=== PATIENT | male | born 1995 | race African-American/Black ===

== ENCOUNTER 2017-08-15 12:55 | Observation (INO) | payer MEDICAID, OTHER ==
[2017-08-15] VITALS (11 sets, daily range): BP systolic 128–193; BP diastolic 69–123; PULSE 104–136; RESP 22–26; TEMP 98.4–99.3; O2SAT 95–97
[~2017-08-15 12:55] MED LIST: ALBU0.08 NEB; BACLOF10P ITR; CLAR10CA3 PO; JEVILIQ12; LISI2.5T3 PO; MONT10TA2 PO; OMEP20TA93 PO
[2017-08-15] MEDS ORDERED: SODIUM CHLOR 0.9% 1000 ML INJ 1,000 ML IV SCH (13:25)
[2017-08-15] MEDS ORDERED: RESP: ALBUTEROL 2.5 MG/IPRATROPIUM 0.5 MG NEB (SCH) INH ONE (13:30)
[2017-08-15] MEDS ORDERED: SODIUM CHLORIDE 0.9% FLUSH 10 ML FLUSH IVF PRN (13:30)
--- NOTE | 2017-08-15 13:41 | PD ---
HPI Chief Complaint: Respiratory Symptoms Time Seen by Provider: 13:12 Travel History International Travel<30 days: No Contact w/Intl Traveler<30days: No Traveled to known affect area: No History of Present Illness HPI Patient comes into the emergency department at the advice of his primary care doctor to rule out pneumonia. Per guardian patient went to have a dental procedure done 2 weeks ago and the patient bit down on the glass instrument causing it to break. Guardian reports the dentist felt like they got everything out however was sent to the emergency department to rule out foreign body aspiration. Guardian states patient is been fine until yesterday when he developed a nonproductive cough. Denies any fevers, nausea, vomiting, change in bowel or bladder, shortness of breath, chest pain, headache, or patient complaining of other symptoms. Patient denies any pain anywhere. Guardian reports patient has history of cerebral palsy, hypertension, and tachycardia. Cardiac reports that her son was diagnosed with the flu within the last week and is uncertain if he may have caught that. Guarding reports giving over-the- counter medication for symptomatic relief without improvement of symptoms. Denies anything making symptoms worse. PFSH Past Medical History Hx Anticoagulant Therapy: No Arthritis: No Asthma: Yes Autoimmune Disease: No Blood Disorders: No Anxiety: No Depression: No Heart Rhythm Problems: No Cancer: No Cardiovascular Problems: Yes Cerebral Palsy: Yes High Cholesterol: No Chemotherapy: No Chest Pain: No Congestive Heart Failure: No Cerebrovascular Accident: No Cystic Fibrosis: No Developmental Delay: Yes Diabetes: No Diminished Hearing: No Endocrine: No Genitourinary: No Hiatal Hernia: No Hypertension: Yes (noticed high blood pressure in 07/2010 with previous surgery.) Immune Disorder: No Implanted Vascular Access Dvce: Yes Musculoskeletal: Yes Neurologic: Yes (cerabral palsy) Psychiatric: No Reproductive: No Respiratory: Yes Immunizations Current: Yes Migraines: No Radiation Therapy: No Seizures: No Sickle Cell Disease: No Sleep Apnea: No Ulcer: No PNEUMOCCOCAL Vaccine (Year): 1 Past Surgical History Abdominal Surgery: Yes Body Medical Devices: baclofen pump, peg tube Cardiac Surgery: No Ear Surgery: No Endocrine Surgery: No Eye Surgery: No Genitourinary Surgery: No Gynecologic Surgery: No Neurologic Surgery: No Oral Surgery: No Thoracic Surgery: No Other Surgery: Yes (HAMSTRING RELEASE, baclofen pump, g tube) Social History Alcohol Use: No Tobacco Use: No Substance Use: No Allergies-Medications (Allergen,Severity, Reaction): Coded Allergies: amoxicillin (Unverified Allergy, Severe, Rash, 08/15/17) clavulanic acid (Unverified Allergy, Severe, Rash, 08/15/17) Reported Meds & Prescriptions Reported Meds & Active Scripts Active Singulair (Montelukast Sodium) 10 Mg Tab 10 Mg PO HS Claritin (Loratadine) 10 Mg Cap 10 Mg PO HS Reported Omeprazole 20 Mg Tab 20 Mg PO DAILY Lioresal Intrathecal Inj (Baclofen) 40 Mg/20 Ml Kit 399.7 Mcg ITR CONTINUOUS Use Only with pump labeled for intrathecal administration. Lisinopril 2.5 Mg Tab 3.75 Mg PO DAILY Jevity 1.5 Karson (Nutritional Supplements) 1 Liq Liq Albuterol Neb (Albuterol Sulfate) 2.5 Mg/3 Ml Neb 2.5 Mg NEB Q4HR NEB While awake Review of Systems Except as stated in HPI: all other systems reviewed are Neg Physical Exam Narrative GENERAL: Well-nourished, in no acute distress, and non-ill appearing. SKIN: Focused skin assessment warm and dry. HEAD: Atraumatic. Normocephalic. EYES: Pupils equal and round. EOMI. No scleral icterus. No injection or drainage. ENT: No nasal bleeding or discharge. Mucous membranes pink and moist. Tympanic membrane is pearly pinedo bilaterally. Posterior pharynx not erythematous without exudate. Uvula is midline. No tenderness to facial sinuses to palpation NECK: Trachea midline. Supple. No nuclear rigidity. No cervical lymphadenopathy. CARDIOVASCULAR: Regular rate and rhythm. No murmur appreciated. RESPIRATORY: No accessory muscle use. No respiratory distress. Clear to auscultation. Breath sounds equal bilaterally. MUSCULOSKELETAL: No obvious deformities. No clubbing. No cyanosis. No edema. NEUROLOGICAL: Awake and alert. Normal speech for patient per guardian. Data Data Last Documented VS Vital Signs Date Time Temp Pulse Resp B/P (MAP) Pulse Ox O2 Delivery O2 Flow Rate FiO2 08/15/17 15:36 136 22 141/95 (110) 96 Room Air 08/15/17 12:58 99.3 Orders Orders Basic Metabolic Panel (Bmp) (08/15/17 13:25) Complete Blood Count With Diff (08/15/17 13:25) Lactic Acid Sepsis Protocol (08/15/17 13:25) Influenzae A/B Antigen (08/15/17 13:25) Blood Culture (08/15/17 13:25) Chest, Single Ap (08/15/17 13:25) Ecg Monitoring (08/15/17 13:25) Iv Access Insert/Monitor (08/15/17 13:25) Oximetry (08/15/17 13:25) Sodium Chlor 0.9% 1000 Ml Inj (Ns 1000 M (08/15/17 13:25) Sodium Chloride 0.9% Flush (Ns Flush) (08/15/17 13:30) Albuterol-Ipratropium Neb (Duoneb Neb) (08/15/17 13:30) Sodium Chlor 0.9% 1000 Ml Inj (Ns 1000 M (08/15/17 15:45) Lactic Acid Sepsis Protocol (08/15/17 15:35) Vancomycin Inj (Vancomycin Inj) (08/15/17 16:13) Aztreonam Inj (Azactam Inj) (08/15/17 16:13) Metronidazole 500 Mg Inj (Flagyl 500 Mg (08/15/17 16:13) Sepsis Workup Initiated (08/15/17 ) Prothrombin Time / Inr (Pt) (08/15/17 16:19) Act Partial Throm Time (Ptt) (08/15/17 16:19) Urinalysis - C+S If Indicated (08/15/17 16:19) Vital Signs (Adult) Q4H (08/15/17 16:35) Activity Oob With Assistance (08/15/17 16:35) Diet Regular Basic (08/15/17 Dinner) Sodium Chlor 0.9% 1000 Ml Inj (Ns 1000 M (08/15/17 16:35) Ondansetron Inj (Zofran Inj) (08/15/17 16:45) Basic Metabolic Panel (Bmp) (08/16/17 06:00) Complete Blood Count With Diff (08/16/17 06:00) Acetaminophen (Tylenol) (08/15/17 16:45) Ibuprofen (Motrin) (08/15/17 16:45) Magnesium Hydroxide Liq (Milk Of Magnesi (08/15/17 16:45) Sennosides (Senokot) (08/15/17 16:45) Bisacodyl Supp (Dulcolax Supp) (08/15/17 16:45) Scd&Teds Bilateral/Knee High NOEMY.QSHIFT (08/15/17 16:35) Labs Laboratory Tests Test 08/15/17 14:15 White Blood Count 8.3 TH/MM3 Red Blood Count 5.66 MIL/MM3 Hemoglobin 16.1 GM/DL Hematocrit 48.2 % Mean Corpuscular Volume 85.2 FL Mean Corpuscular Hemoglobin 28.4 PG Mean Corpuscular Hemoglobin Concent 33.4 % Red Cell Distribution Width 13.0 % Platelet Count 259 TH/MM3 Mean Platelet Volume 9.3 FL Neutrophils (%) (Auto) 65.1 % Lymphocytes (%) (Auto) 27.5 % Monocytes (%) (Auto) 6.7 % Eosinophils (%) (Auto) 0.1 % Basophils (%) (Auto) 0.6 % Neutrophils # (Auto) 5.4 TH/MM3 Lymphocytes # (Auto) 2.3 TH/MM3 Monocytes # (Auto) 0.6 TH/MM3 Eosinophils # (Auto) 0.0 TH/MM3 Basophils # (Auto) 0.0 TH/MM3 CBC Comment DIFF FINAL Differential Comment Blood Urea Nitrogen 10 MG/DL Creatinine 0.53 MG/DL Random Glucose 105 MG/DL Calcium Level 9.7 MG/DL Sodium Level 142 MEQ/L Potassium Level 4.2 MEQ/L Chloride Level 107 MEQ/L Carbon Dioxide Level 21.7 MEQ/L Anion Gap 13 MEQ/L Estimat Glomerular Filtration Rate 236 ML/MIN Lactic Acid Level 4.1 mmol/L MDM Medical Decision Making Medical Screen Exam Complete: Yes Emergency Medical Condition: Yes Differential Diagnosis Community acquired pneumonia, aspiration pneumonia, influenza, metabolic disturbance, sepsis, SIRS Narrative Course Patient was seen and examined. Initial laboratory radiological studies were ordered. IV was established and patient was placed on cardiac monitoring. Patient was given IV fluid and do not breathing treatment. Guardian reports improvement of cough status post breathing treatment. Discussed patient with Dr. Tobar recommends having patient admitted for sepsis secondary to elevated lactate, tachycardia, and tachypnea. Patient started on IV antibiotics. Discussed all findings and plan of care with guardian, who is agreeable for admission. All questions were answered. Patient remained stable throughout ED course. Discussed patient with hospitalist, who is agreeable to admit the patient. Sepsis Criteria SIRS Criteria (2 or more): Heart rate over 90, RR > 20 or PaCO2 < 32 Sepsis Criteria (SIRS+source): Infect source susp/known Severe Sepsis (+one): Lactate >2 Physician Communication Physician Communication [id number] Grimm, who is agreeable to admit the patient. Diagnosis Primary Impression: SIRS (systemic inflammatory response syndrome) Admitting Information Admitting Physician Requests: Observation Condition: Stable Kurt Boland Aug 15, 2017 13:41
--- NOTE | 2017-08-15 14:32 | RADRPT ---
EXAM DATE/TIME: 08/15/2017 14:14 [facility] COMPARISON: CHEST SINGLE AP, May 26, 2016, 6:04. INDICATIONS : Cough, fever, congestion MEDICAL HISTORY : Cerebral palsy SURGICAL HISTORY : g tube, baclofen pump, alatorre rods ENCOUNTER: Initial ACUITY: 2 days PAIN SCORE: Non-responsive. LOCATION: Bilateral chest FINDINGS: A single view of the chest demonstrates the lungs to be symmetrically aerated without evidence of mas s, infiltrate or effusion. The heart size is stable compared to prior exam. There is stable scoliosi s of the thoracic and lumbar spine with spinal rods in place. No significant change compared to the p rior exam.. CONCLUSION: No acute pulmonary infiltrates. No significant change compared to the prior exam Mack Ring MD on August 15, 2017 at 14:30 Board Certified Radiologist. This report was verified electronically.
[2017-08-15 14:48] LABS: AUTOMATED NEUTROPHIL # 5.4 TH/MM3 (1.8-7.7); BASOPHIL % 0.6 % (0.0-2.0); EOSINOPHIL % 0.1 % (0.0-4.0); HEMATOCRIT 48.2 % (39.0-51.0); HEMOGLOBIN 16.1 GM/DL (13.0-17.0); LYMPH % 27.5 % (9.0-44.0); LYMPHOCYTE # 2.3 TH/MM3 (1.0-4.8); MEAN CELL VOLUME 85.2 FL (80.0-100.0); MEAN CORPUSCULAR HEMOGLOBIN 28.4 PG (27.0-34.0); MEAN CORPUSCULAR HGB CONC 33.4 % (32.0-36.0); MEAN PLATELET VOLUME 9.3 FL (7.0-11.0); MONO % 6.7 % (0.0-8.0); MONOCYTE # 0.6 TH/MM3 (0-0.9); NEUT % 65.1 % (16.0-70.0); PLATELET COUNT 259 TH/MM3 (150-450); RED BLOOD COUNT 5.66 MIL/MM3 (4.50-5.90); WHITE BLOOD COUNT 8.3 TH/MM3 (4.0-11.0)
[2017-08-15 15:12] LABS: BICARBONATE 21.7 MEQ/L (21.0-32.0); CALCIUM 9.7 MG/DL (8.5-10.1); CREATININE 0.53 MG/DL (0.60-1.30)
[2017-08-15 15:29] LABS: LACTIC ACID SEPSIS PROTOCOL 4.1 mmol/L (0.4-2.0)
[2017-08-15] MEDS ORDERED: SODIUM CHLOR 0.9% 1000 ML INJ 1,000 ML IV ONE (15:45)
[2017-08-15] MEDS ORDERED: VANCOMYCIN INJ 1,000 MG in SODIUM CHLOR 0.9% 250 ML INJ 250 ML IV STA (16:13)
[2017-08-15] MEDS ORDERED: AZTREONAM INJ 2,000 MG in SODIUM CHLORIDE 0.9% INJ 100 ML IV STA (16:13)
[2017-08-15] MEDS ORDERED: metroNIDAZOLE 500 MG INJ 100 ML IV STA (16:13)
[2017-08-15] MEDS ORDERED: SENNOSIDES 8.6 MG TAB PO PRN (16:45)
[2017-08-15] MEDS ORDERED: IBUPROFEN 400 MG TAB PO PRN (16:45)
[2017-08-15] MEDS ORDERED: MAGNESIUM HYDROXIDE SUSP 30 ML CUP PO PRN (16:45)
[2017-08-15] MEDS ORDERED: NALOXONE HCL 0.4 MG/ML AMP IV PUSH PRN (16:45)
[2017-08-15] MEDS ORDERED: ACETAMINOPHEN 325 MG TAB PO PRN (16:45)
[2017-08-15] MEDS ORDERED: ONDANSETRON HCL 4 MG/2 ML VIAL IVP PRN (16:45)
[2017-08-15] MEDS ORDERED: BISACODYL 10 MG SUPP RECTAL PRN (16:45)
--- NOTE | 2017-08-15 17:01 | PD ---
Data Data Last Documented VS Vital Signs Date Time Temp Pulse Resp B/P (MAP) Pulse Ox O2 Delivery O2 Flow Rate FiO2 08/15/17 15:36 136 22 141/95 (110) 96 Room Air 08/15/17 12:58 99.3 Orders Orders Basic Metabolic Panel (Bmp) (08/15/17 13:25) Complete Blood Count With Diff (08/15/17 13:25) Lactic Acid Sepsis Protocol (08/15/17 13:25) Influenzae A/B Antigen (08/15/17 13:25) Blood Culture (08/15/17 13:25) Chest, Single Ap (08/15/17 13:25) Ecg Monitoring (08/15/17 13:25) Iv Access Insert/Monitor (08/15/17 13:25) Oximetry (08/15/17 13:25) Sodium Chlor 0.9% 1000 Ml Inj (Ns 1000 M (08/15/17 13:25) Sodium Chloride 0.9% Flush (Ns Flush) (08/15/17 13:30) Albuterol-Ipratropium Neb (Duoneb Neb) (08/15/17 13:30) Sodium Chlor 0.9% 1000 Ml Inj (Ns 1000 M (08/15/17 15:45) Lactic Acid Sepsis Protocol (08/15/17 15:35) Vancomycin Inj (Vancomycin Inj) (08/15/17 16:13) Aztreonam Inj (Azactam Inj) (08/15/17 16:13) Metronidazole 500 Mg Inj (Flagyl 500 Mg (08/15/17 16:13) Sepsis Workup Initiated (08/15/17 ) Prothrombin Time / Inr (Pt) (08/15/17 16:19) Act Partial Throm Time (Ptt) (08/15/17 16:19) Urinalysis - C+S If Indicated (08/15/17 16:19) Vital Signs (Adult) Q4H (08/15/17 16:35) Activity Oob With Assistance (08/15/17 16:35) Sodium Chlor 0.9% 1000 Ml Inj (Ns 1000 M (08/15/17 16:35) Ondansetron Inj (Zofran Inj) (08/15/17 16:45) Basic Metabolic Panel (Bmp) (08/16/17 06:00) Complete Blood Count With Diff (08/16/17 06:00) Acetaminophen (Tylenol) (08/15/17 16:45) Ibuprofen (Motrin) (08/15/17 16:45) Magnesium Hydroxide Liq (Milk Of Magnesi (08/15/17 16:45) Sennosides (Senokot) (08/15/17 16:45) Bisacodyl Supp (Dulcolax Supp) (08/15/17 16:45) Scd&Teds Bilateral/Knee High NOEMY.QSHIFT (08/15/17 16:35) Place In Observation (08/15/17 ) Naloxone Inj (Narcan Inj) (08/15/17 16:45) Admit Order (Ed Use Only) (08/15/17 16:51) Labs Laboratory Tests Test 08/15/17 14:15 08/15/17 16:52 White Blood Count 8.3 TH/MM3 Red Blood Count 5.66 MIL/MM3 Hemoglobin 16.1 GM/DL Hematocrit 48.2 % Mean Corpuscular Volume 85.2 FL Mean Corpuscular Hemoglobin 28.4 PG Mean Corpuscular Hemoglobin Concent 33.4 % Red Cell Distribution Width 13.0 % Platelet Count 259 TH/MM3 Mean Platelet Volume 9.3 FL Neutrophils (%) (Auto) 65.1 % Lymphocytes (%) (Auto) 27.5 % Monocytes (%) (Auto) 6.7 % Eosinophils (%) (Auto) 0.1 % Basophils (%) (Auto) 0.6 % Neutrophils # (Auto) 5.4 TH/MM3 Lymphocytes # (Auto) 2.3 TH/MM3 Monocytes # (Auto) 0.6 TH/MM3 Eosinophils # (Auto) 0.0 TH/MM3 Basophils # (Auto) 0.0 TH/MM3 CBC Comment DIFF FINAL Differential Comment Blood Urea Nitrogen 10 MG/DL Creatinine 0.53 MG/DL Random Glucose 105 MG/DL Calcium Level 9.7 MG/DL Sodium Level 142 MEQ/L Potassium Level 4.2 MEQ/L Chloride Level 107 MEQ/L Carbon Dioxide Level 21.7 MEQ/L Anion Gap 13 MEQ/L Estimat Glomerular Filtration Rate 236 ML/MIN Lactic Acid Level 4.1 mmol/L MDM Medical Record Reviewed: Yes Supervised Visit with DAVID: Yes Narrative Course I, Dr. Tobar, have reviewed the advance practice practitioner's documentation and am in agreement, met with the patient face to face, made the diagnosis, and the medical decision making was done by me. *My assessment and Findings: CBC & BMP Diagram 08/15/17 14:15 Calcium Level 9.7 LA 4.1 Patient will be admitted for IV antibiotics with concern for sepsis. Diagnosis Primary Impression: SIRS (systemic inflammatory response syndrome) Admitting Information Admitting Physician Requests: Admit Condition: Stable Alvaro Tobar MD Aug 15, 2017 17:01
--- NOTE | 2017-08-15 17:28 | HHI.HP ---
[facility] Unknown Admission Diagnosis SIRS Diagnoses: Chief Complaint: cough Travel History International Travel<30 Days: No Contact w/Intl Traveler <30 Da: No Traveled to Known Affected Are: No Sepsis Criteria SIRS Criteria (2 or more): Heart rate over 90, RR > 20 or PaCO2 < 32 Criteria Outcome: Meets SIRS criteria History of Present Illness 22-year-old male with history of cerebral palsy, intellectual disability, hypertension, tachycardia, spastic quadriplegic, asthma, presents with a two day history of cough. The patient's foster mother is at bedside and assists with the history.S She has been his caregiver for 14 years now and knows the patient very well. She explains on 08/01 while at a dental evaluation in [place], the patient bit down on the mirror probe and broke the glass. That day he was sent to the ER, scans are performed, and there was no evidence of any foreign body. The patient was doing well until he started to develop a nonproductive cough two days ago. Denies any fevers but the patient was cool and clammy this morning. Denies noticing any complaints of pain, nausea/vomiting , or diarrhea. He has not been drinking as much fluids over the past few days. The patient's brother was sick with the flu one week ago. Today the patient went for his scheduled follow-up visit for the glass incident, saw a new PCP who noted his heart rate to be high and sent him to the ER for further evaluation. The foster mother reports that the patient has tachycardia at baseline, usually in the low 100s, however his heart rate does increase to the 150s at times when he is at a facility and around new people. There are no other concerns reported at this time. He takes only liquids by mouth with a straw, otherwise has 5 cans of Jevity per day with 30ml water flush pre and post meals. Review of Systems ROS Limitations: Speech Impaired, Poor Historian Except as stated in HPI: all other systems reviewed are Neg Past Family Social History Past Medical History cerebral palsy intellectual disability hypertension tachycardia spastic quadriplegic asthma Past Surgical History Intrathecal baclofen pump placement Bilateral hand and hip releases Back surgery PEG tube placement Reported Medications Singulair (Montelukast Sodium) 10 Mg Tab 10 Mg PO HS Claritin (Loratadine) 10 Mg Cap 10 Mg PO HS Omeprazole 20 Mg Tab 20 Mg PO DAILY Lioresal Intrathecal Inj (Baclofen) 40 Mg/20 Ml Kit 399.7 Mcg ITR CONTINUOUS Use Only with pump labeled for intrathecal administration. Lisinopril 2.5 Mg Tab 3.75 Mg PO DAILY Jevity 1.5 Karson (Nutritional Supplements) 1 Liq Liq Albuterol Neb (Albuterol Sulfate) 2.5 Mg/3 Ml Neb 2.5 Mg NEB Q4HR NEB While awake Allergies: Coded Allergies: amoxicillin (Unverified Allergy, Severe, Rash, 08/15/17) clavulanic acid (Unverified Allergy, Severe, Rash, 08/15/17) Active Ordered Medications Current Medications Medications (Trade) Dose Ordered Sig/Janay Route Start Time Stop Time Status Last Admin (NS Flush) 2 ml UNSCH PRN IVF 08/15/17 13:30 Vancomycin HCl 1000 mg/Sodium Chloride 250 ml @ 250 mls/hr ONCE STAT IV 08/15/17 16:13 08/15/17 17:12 Metronidazole 100 ml @ 100 mls/hr ONCE STAT IV 08/15/17 16:13 08/15/17 17:12 08/15/17 16:35 Sodium Chloride 1,000 ml @ 100 mls/hr Q10H IV 08/15/17 16:35 (Zofran Inj) 4 mg Q6H PRN IVP 08/15/17 16:45 (Tylenol) 650 mg Q6H PRN PO 08/15/17 16:45 (Motrin) 400 mg Q6H PRN PO 08/15/17 16:45 (Milk Of Magnesia Liq) 30 ml Q12H PRN PO 08/15/17 16:45 (Senokot) 17.2 mg Q12H PRN PO 08/15/17 16:45 (Dulcolax Supp) 10 mg DAILY PRN RECTAL 08/15/17 16:45 (Narcan Inj) 0.4 mg UNSCH PRN IV PUSH 08/15/17 16:45 Family History Patient is under the care of his foster mother, unknown biological family history. Social History Denies any tobacco, alcohol, or illicit drug use. Lives with foster mother 14 years. Physical Exam Vital Signs Vital Signs Date Time Temp Pulse Resp B/P (MAP) Pulse Ox O2 Delivery O2 Flow Rate FiO2 08/15/17 15:36 136 22 141/95 (110) 96 Room Air 08/15/17 13:24 22 08/15/17 12:58 99.3 115 26 193/123 (146) 96 Physical Exam GENERAL: Well-nourished, well-developed pleasant AA cerebral palsy patient in NAD. SKIN: Warm and dry. No rash. HEAD: Normocephalic. Atraumatic. EYES: Pupils equal and round. No scleral icterus. No injection or drainage. ENT: No nasal bleeding or discharge. Mucous membranes pink and moist. NECK: Supple. Trachea midline. CARDIOVASCULAR: Regular rate and rhythm. S1, S2 noted. No murmur appreciated. RESPIRATORY: No accessory muscle use. Some upper airway congestion noted, otherwise clear to auscultation. Breath sounds equal bilaterally. GASTROINTESTINAL: Abdomen soft, non-tender, nondistended. Normoactive bowel sounds x4. PEG tube at left abdomen. MUSCULOSKELETAL: No obvious deformities. Extremities without edema. NEUROLOGICAL: Awake and alert. Spastic quadriplegic. PSYCHIATRIC: Pleasant mood; insight and judgment limited. Laboratory Laboratory Tests Test 08/15/17 14:15 08/15/17 16:52 White Blood Count 8.3 Red Blood Count 5.66 Hemoglobin 16.1 Hematocrit 48.2 Mean Corpuscular Volume 85.2 Mean Corpuscular Hemoglobin 28.4 Mean Corpuscular Hemoglobin Concent 33.4 Red Cell Distribution Width 13.0 Platelet Count 259 Mean Platelet Volume 9.3 Neutrophils (%) (Auto) 65.1 Lymphocytes (%) (Auto) 27.5 Monocytes (%) (Auto) 6.7 Eosinophils (%) (Auto) 0.1 Basophils (%) (Auto) 0.6 Neutrophils # (Auto) 5.4 Lymphocytes # (Auto) 2.3 Monocytes # (Auto) 0.6 Eosinophils # (Auto) 0.0 Basophils # (Auto) 0.0 CBC Comment DIFF FINAL Differential Comment Blood Urea Nitrogen 10 Creatinine 0.53 Random Glucose 105 Calcium Level 9.7 Sodium Level 142 Potassium Level 4.2 Chloride Level 107 Carbon Dioxide Level 21.7 Anion Gap 13 Estimat Glomerular Filtration Rate 236 Lactic Acid Level 4.1 Date/Time Source Procedure Growth Status 08/15/17 14:15 Blood Peripheral Aerobic Blood Culture Pending Received 08/15/17 14:15 Blood Peripheral Anaerobic Blood Culture Pending Received 08/15/17 14:15 Nasal Washing Influenza Types A,B Antigen (JUAN ALBERTO) - Final NEGATIVE FOR FLU A AND B ANTIGEN.... Complete Result Diagram: 08/15/17 1415 08/15/17 1415 Imaging Last Impressions Chest X-Ray 08/15/17 1325 Signed Impressions: Service Date/Time: , August 15, 2017 14:14 - CONCLUSION: No acute pulmonary infiltrates. No significant change compared to the prior exam MD Uyen Whitehead VTE Risk Assessment [place]ael VTE Risk Assessment: Mod/High Risk (score >= 2) Caprini Risk Assessment Model Point Value = 1 Point Value = 2 Point Value = 3 Point Value = 5 Age 41-60 Minor surgery BMI > 25 kg/m2 Swollen legs Varicose veins or History of unexplained or recurrent spontaneous Oral contraceptives or hormone replacement Sepsis (< 1 month) Serious lung disease, including pneumonia (< 1 month) Abnormal pulmonary function Acute myocardial infarction Congestive heart failure (< 1 month) History of inflammatory bowel disease Medical patient at bed rest Age 61-74 Arthroscopic surgery Major open surgery (> 45 min) Laparoscopic surgery (> 45 min) Malignancy Confined to bed (> 72 hours) Immobilizing plaster cast Central venous access Age >= 75 History of VTE Family history of VTE Factor V Leiden Prothrombin [id number] Lupus anticoagulant Anticardiolipin antibodies Elevated serum homocysteine Heparin-induced thrombocytopenia Other congenital or acquired thrombophilia Stroke (< 1 month) Elective arthroplasty Hip, pelvis, or leg fracture Acute spinal cord injury (< 1 month) Prophylaxis Regimen Total Risk Factor Score Risk Level Prophylaxis Regimen 0-1 Low Early ambulation 2 Moderate Order ONE of the following: *Sequential Compression Device (SCD) *Heparin 5000 units SQ BID 3-4 Higher Order ONE of the following medications: *Heparin 5000 units SQ TID *Enoxaparin/Lovenox 40 mg SQ daily (WT < 150 kg, CrCl > 30 mL/min) *Enoxaparin/Lovenox 30 mg SQ daily (WT < 150 kg, CrCl > 10-29 mL/min) *Enoxaparin/Lovenox 30 mg SQ BID (WT < 150 kg, CrCl > 30 mL/min) AND/OR *Sequential Compression Device (SCD) 5 or more Highest Order ONE of the following medications: *Heparin 5000 units SQ TID (Preferred with Epidurals) *Enoxaparin/Lovenox 40 mg SQ daily (WT < 150 kg, CrCl > 30 mL/min) *Enoxaparin/Lovenox 30 mg SQ daily (WT < 150 kg, CrCl > 10-29 mL/min) *Enoxaparin/Lovenox 30 mg SQ BID (WT < 150 kg, CrCl > 30 mL/min) AND *Sequential Compression Device (SCD) Assessment and Plan Problem List: (1) SIRS (systemic inflammatory response syndrome) ICD Code: R65.10 - Systemic inflammatory response syndrome (SIRS) of non- infectious origin without acute organ dysfunction (2) Cerebral palsy ICD Code: G80.9 - Cerebral palsy Status: Acute (3) Hypertension ICD Code: I10 - Hypertension Status: Acute (4) Tachycardia ICD Code: R00.0 - Tachycardia, unspecified Status: Acute Assessment and Plan 22-year-old male with history of cerebral palsy, intellectual disability, hypertension, tachycardia, spastic quadriplegic, asthma, presents with a two day history of cough. Acute Bronchitis: Suspect cough secondary to viral URI. Afebrile, no leukocytosis, however meets SIRS criteria +tachycardia/tachypnea with lactic acid 4.1 although lactic acidosis likely secondary to dehydration. Influenza negative. CXR images reviewed, no acute findings. -Blood cultures collected and pending -S/p IV antibiotics with Azactam, Vanco, Flagyl in the ED; however no clear indication for antibiotics at this time per attending Dr. Grimm -Supportive treatment with IVF hydration -Monitor on telemetry in [facility] -Repeat lactic acid -Repeat CBC/BMP in am -Monitor for improvement Lactic Acidosis: suspect secondary to dehydration, poor oral intake x2days with viral URI as above. -Lactic acid 4.1 -Repeat lactic acid -Continue on IVF at 100cc/hr Dehydration: suspect secondary to decreased oral intake x2days. -Continue IVF hydration -Monitor BMP Tachycardia: patient's baseline around low 100s per foster mother who also reports HR increases while in new facility with new people. Likely component of dehydration contributing to tachycardia. -Give IVF hydration -Monitor on telemetry -Consider starting on beta john Cerebral Palsy/Dysphagia: chronic, at baseline. -continue patient's tube feeds with Jevity 5cans/day -continue home meds once updated by RN Hypertension: BP elevated at 193/123 upon arrival, likely secondary to excitement/agitation as BP improved to 141/95 without meds -continue patient's home meds once list updated -IV Vasotec prn DVT Prophylaxis: lovenox sq Discussed Condition With Patient, Patient's Foster Mom, ED RN, Dr. Grimm Attending Statement The exam, history, and the medical decision-making described in the above note were completed with the assistance of the mid-level provider. I reviewed and agree with the findings presented. I attest that I had a [id number] encounter with the patient on the same day, and personally performed and documented my assessment and findings in the medical record. History taken from the caregiver who is the patient's mom she stated that patient had a dental procedure completed in which they were afraid that he might have swallowed a glass. Per patient's mom she stated that they did not suspect that patient swallowed glass wanted to make sure so she told him to take to the emergency department in which x-rays were negative and she was told very unlikely he swallowed glass. Patient saw his primary care physician today and had a cough for the past 2 days so primary care physician told him to go to the emergency department. Patient's mother denies any shortness of breathing. She also stated that patient is always tachycardic. Shee stated that when he is in an unfamiliar environment or anxious his heart rate go as high [id number] and this is normal for him. She stated that she really didn't have any concerns but her primary care physician told her to take him to the hospital. Patient does have sick family members who were diagnosed with the flu recently. She stated that patient usually drinks a lot of water but the past 2 days he has not been drinking much. Gen NAD CV tachycardic. Regular rhythm. No rubs murmurs or gallops. Pulm. CTA B/L Respiratory rate 18. Abdomen soft nondistended and nontender. Assessment plan Cough SIRS Elevated lactic acid Dehydration Cerebral palsy Mentally challenge Unlikely this is SIRS since patient's respiratory rate was normal when I saw him. Per patient's mom respiratory increase when he heard loud noises. Chest x -rays also negative for any pneumonia and his lungs are clear on clinical exam. Patient tachycardia is also his baseline. I do recommend if this is his baseline prescribing metoprolol to help with his heart rate. His mother is calling to get an update of his medication list. Will give IV fluids and monitor and see [facility]. Will not treat with antibiotics since there is no sign of infection. Ann Vanegas PA-C Aug 15, 2017 17:28 Martha Grimm MD Aug 15, 2017 18:39
[2017-08-15] MEDS ORDERED: ENALAPRILAT 1.25 MG/ML VIAL IV PUSH PRN (17:45)
[2017-08-15 17:51] LABS: PROTHROMBIN TIME - PATIENT 10.6 SEC (9.8-11.6)
[2017-08-15] MEDS: SODIUM CHLOR 0.9% 1000 ML INJ 1,000 ML IV SCH (18:11)
[2017-08-15 18:56] LABS: BILIRUBIN, URINE NEG (NEG); BLOOD, URINE NEG (NEG); GLUCOSE,URINE NEG (NEG); HYALINE CAST, URINE 4 /lpf (RARE); KETONE, URINE 10 mg/dL (NEG); NITRITE,URINE NEG (NEG); PH, URINE 7.5 (5.0-8.5); SQUAMOUS EPITHELIAL CELL URINE <1 /hpf (0-5); URINE COLOR LIGHT-YELLOW (YELLW/STRAW); URINE LEUKOCYTE ESTERASE NEG (NEG); WHITE BLOOD CELL CLUMPS RARE
[2017-08-15] MEDS: ENOXAPARIN SODIUM 40 MG/0.4 ML SYRINGE SQ SCH (22:20)
[2017-08-16] VITALS (26 sets, daily range): BP systolic 122–144; BP diastolic 74–91; PULSE 69–116; RESP 18–21; TEMP 97.3–98.9; O2SAT 96–97
[2017-08-16] MEDS: SODIUM CHLOR 0.9% 1000 ML INJ 1,000 ML IV SCH ×3 (04:23→23:10)
[2017-08-16 05:57] LABS: AUTOMATED NEUTROPHIL # 4.7 TH/MM3 (1.8-7.7); BASOPHIL % 0.4 % (0.0-2.0); EOSINOPHIL % 0.4 % (0.0-4.0); HEMATOCRIT 43.3 % (39.0-51.0); HEMOGLOBIN 14.5 GM/DL (13.0-17.0); LYMPH % 46.2 % (9.0-44.0); MEAN CELL VOLUME 85.3 FL (80.0-100.0); MEAN CORPUSCULAR HEMOGLOBIN 28.6 PG (27.0-34.0); MEAN CORPUSCULAR HGB CONC 33.5 % (32.0-36.0); MEAN PLATELET VOLUME 9.3 FL (7.0-11.0); MONO % 9.7 % (0.0-8.0); MONOCYTE # 1.1 TH/MM3 (0-0.9); NEUT % 43.3 % (16.0-70.0); PLATELET COUNT 232 TH/MM3 (150-450); RED BLOOD COUNT 5.08 MIL/MM3 (4.50-5.90); RED CELL DISTRIBUTION WIDTH 12.9 % (11.6-17.2); WHITE BLOOD COUNT 10.9 TH/MM3 (4.0-11.0)
[2017-08-16 06:24] LABS: BICARBONATE 20.3 MEQ/L (21.0-32.0); CALCIUM 8.8 MG/DL (8.5-10.1); CREATININE 0.5 MG/DL (0.60-1.30)
--- NOTE | 2017-08-16 10:11 | HHI.PR ---
Subjective Remarks 22M with h/o cerebral palsy and mental deficit presented yesterday with a cough and tachycardia. Tachycardia according to his mother is close to his norm, with baseline HR around 100 bpm. It is somewhat elevated today, but he has chest congestion (bronchitis). He is in bed smiling, but non-verbal, not distressed. Objective Vital Signs Date Time Temp Pulse Resp B/P (MAP) Pulse Ox O2 Delivery O2 Flow Rate FiO2 08/16/17 08:00 97 08/16/17 07:00 91 08/16/17 07:00 98.4 91 18 128/88 (101) 96 08/16/17 06:32 82 08/16/17 05:28 113 08/16/17 04:03 71 08/16/17 03:18 75 08/16/17 03:10 98.9 112 21 144/91 (108) 96 08/16/17 02:10 69 08/16/17 01:01 92 08/16/17 00:25 94 08/15/17 23:50 130 08/15/17 23:15 98.6 128 24 149/98 (115) 96 08/15/17 22:30 104 08/15/17 21:15 116 08/15/17 20:20 132 08/15/17 19:34 113 08/15/17 19:20 98.4 122 22 128/69 (88) 95 08/15/17 18:01 98.7 120 24 165/95 (118) 97 08/15/17 17:45 08/15/17 17:44 99.2 120 22 129/73 (91) 96 Room Air 08/15/17 15:36 136 22 141/95 (110) 96 Room Air 08/15/17 13:24 22 08/15/17 12:58 99.3 115 26 193/123 (146) 96 I/O 08/15/17 08/15/17 08/15/17 08/16/17 08/16/17 08/16/17 07:00 15:00 23:00 07:00 15:00 23:00 Intake Total 2000 ml 240 ml Output Total 100 ml Balance 1900 ml 240 ml Intake Oral 240 ml IV Total 2000 ml Output Urine Total 100 ml # Voids 1 5 # Bowel Movements 1 0 Result Diagram: 08/16/17 0500 08/16/17 0500 Imaging Last Impressions Chest X-Ray 08/15/17 1325 Signed Impressions: Service Date/Time: July 14:14 - CONCLUSION: No acute pulmonary infiltrates. No significant change compared to the prior exam Mack Ring MD Objective Remarks GENERAL: Multiple physical and mental deficits SKIN: Warm and dry. HEAD: Normocephalic. EYES: No scleral icterus. No injection or drainage. NECK: Supple, trachea midline. No JVD or lymphadenopathy. CARDIOVASCULAR: Sinus tachycardia, no murmurs, gallops, or rubs. RESPIRATORY: Anterior congestion, weak cough effort, bases clear. No accessory muscle use. GASTROINTESTINAL: Abdomen soft, non-tender, nondistended. MUSCULOSKELETAL: No cyanosis, or edema, generally weakened from cerebral palsy Assessment and Plan Problem List: (1) URI (upper respiratory infection) ICD Codes: J06.9 - Upper respiratory infection Status: Acute (2) Tachycardia ICD Codes: R00.0 - Tachycardia, unspecified Status: Acute (3) UTI (urinary tract infection) ICD Codes: N39.0 - Urinary tract infection, site not specified (4) Hypertension ICD Codes: I10 - Hypertension Status: Acute (5) Cerebral palsy ICD Codes: G80.9 - Cerebral palsy Status: Acute (6) G tube feedings ICD Codes: Z93.1 - Gastrostomy feeding Status: Acute Assessment and Plan Bronchitis Viral vs. bacterial, but high risk for worsening due to h/o asthma and cerebral palsy (poor cough effort) Begin Rocephin for coverage of bronchitis and possible UTI Robitussin prn Urinary Tract Infection (cultures indicated) WBC clumps present on UA, cultures pending Tachycardia Baseline HR around 100 bpm Upto 120's on telemetry, but not distressed, no irregularity, consider febrile effect Hx of asthma, so no metoprolol at this time, consider CCB if persisting despite antibiotic therapy Transfer to Med/Surg Telemetry floor Hypertension 130s, stable Cerebral Palsy with mental deficits Chronic condition, no changes Makes his bronchitis risky for becoming pneumonia due to weakness and inability to communicate how he feels G-Tube feeding Crushed PO meds via G tube DVT Prophylaxis Lovenox Discharge Planning Will begin on Cephalosporin today, watch for side effects (Augmentin allergic) If tolerating Rocephin well and HR improving, will switch to PO and discharge tomorrow Heath Baires MD Aug 16, 2017 10:11
[2017-08-16] MEDS: cefTRIAXone INJ 1,000 MG in SODIUM CHLORIDE 0.9% INJ 100 ML IV SCH (12:37)
[2017-08-16] MEDS: ENOXAPARIN SODIUM 40 MG/0.4 ML SYRINGE SQ SCH (19:39)
[2017-08-17] VITALS: BP 114/55; PULSE 99; RESP 20; TEMP 98.1; O2SAT 95
[2017-08-17 00:30] VITALS: PULSE 106
[2017-08-17 04:00] VITALS: BP 157/68; PULSE 81; PULSE 85; RESP 20; TEMP 97.5; O2SAT 95
[2017-08-17 08:00] VITALS: BP 160/87; PULSE 99; RESP 20; TEMP 98.3; O2SAT 95
[2017-08-17] MEDS: SODIUM CHLOR 0.9% 1000 ML INJ 1,000 ML IV SCH ×2 (08:35→11:29)
[2017-08-17] MEDS: cefTRIAXone INJ 1,000 MG in SODIUM CHLORIDE 0.9% INJ 100 ML IV SCH (11:21)
[2017-08-17 12:00] VITALS: BP 143/70; PULSE 110; RESP 20; TEMP 97.5; O2SAT 95
[2017-08-17] MEDS ORDERED: LEVO750T3 PO (12:15)
--- NOTE | 2017-08-17 12:20 | HHI.PR ---
Subjective Remarks Patient seen this morning around 11:30. Mostly nonverbal, however does seem to say okay when asked how he is doing. Objective Vital Signs Date Time Temp Pulse Resp B/P (MAP) Pulse Ox O2 Delivery O2 Flow Rate FiO2 08/17/17 08:00 98.3 99 20 160/87 (111) 95 08/17/17 04:00 97.5 85 20 157/68 (97) 95 08/17/17 04:00 81 08/17/17 00:30 106 08/17/17 00:00 98.1 99 20 114/55 (74) 95 08/17/17 00:00 Room Air 08/16/17 22:00 Room Air 08/16/17 21:40 97.6 96 20 133/90 (104) 97 08/16/17 21:09 98 08/16/17 21:00 95 08/16/17 20:15 105 08/16/17 19:35 98.3 99 21 130/83 (99) 97 08/16/17 19:14 74 08/16/17 18:00 100 08/16/17 17:00 101 08/16/17 16:00 101 08/16/17 15:00 97.3 92 18 122/78 (93) 96 08/16/17 15:00 86 08/16/17 14:00 94 08/16/17 13:00 94 I/O 08/16/17 08/16/17 08/16/17 08/17/17 08/17/17 08/17/17 07:00 15:00 23:00 07:00 15:00 23:00 Intake Total 240 ml 280 ml 550 ml Balance 240 ml 280 ml 550 ml Intake Oral 240 ml IV Total 550 ml Tube Feeding 250 ml Tube Irrigant 30 ml # Voids 5 6 2 # Bowel Movements 0 1 Result Diagram: 08/16/17 0500 08/16/17 0500 Imaging Last Impressions Chest X-Ray 08/15/17 1325 Signed Impressions: Service Date/Time: July 14:14 - CONCLUSION: No acute pulmonary infiltrates. No significant change compared to the prior exam Mack Ring MD Objective Remarks GENERAL: Sitting up in bed. Appears comfortable. Nonverbal the exception of saying okay SKIN: Warm and dry. HEAD: Normocephalic. EYES: No scleral icterus. No injection or drainage. NECK: Supple, trachea midline. No JVD. CARDIOVASCULAR: Regular rate and rhythm without murmurs, gallops, or rubs. RESPIRATORY: Breath sounds equal bilaterally. No accessory muscle use. GASTROINTESTINAL: Abdomen soft, non-tender, nondistended. PEG tube without any leakage or surrounding erythema. MUSCULOSKELETAL: No cyanosis, or edema. BACK: Nontender without obvious deformity. No CVA tenderness. A/P Assessment and Plan //Bronchitis Viral vs. bacterial, but high risk for worsening due to h/o asthma and cerebral palsy (poor cough effort) Begin Rocephin for coverage of bronchitis and possible UTI Robitussin prn = Continue on Levaquin to complete treatment course //Urinary Tract Infection (cultures indicated) WBC clumps present on UA, cultures pending = Cultures with no growth. //Tachycardia Baseline HR around 100 bpm Upto 120's on telemetry, but not distressed, no irregularity, consider febrile effect Hx of asthma, so no metoprolol at this time, consider CCB if persisting despite antibiotic therapy Transfer to Med/Surg Telemetry floor = Improved With antibiotic therapy. //Hypertension 130s, stable = Blood pressures acceptable. Continue home regimen. //Cerebral Palsy with mental deficits Chronic condition, no changes Makes his bronchitis risky for becoming pneumonia due to weakness and inability to communicate how he feels //G-Tube feeding Crushed PO meds via G tube //DVT Prophylaxis Lovenox Discharge Planning Discharge to SNF with Levaquin to complete treatment course. [facility] follow-up with a vocational nursing instructor Elias Jimenez MD Aug 17, 2017 12:20
--- NOTE | 2017-08-17 12:21 | HHI.DS ---
Discharge Summary Admission Date Aug 15, 2017 at 16:53 Discharge Date: Aug 17, 2017 Admitting Diagnosis SIRS (1) SIRS (systemic inflammatory response syndrome) ICD Code: R65.10 - Systemic inflammatory response syndrome (SIRS) of non- infectious origin without acute organ dysfunction (2) Cerebral palsy ICD Code: G80.9 - Cerebral palsy Status: Acute (3) Hypertension ICD Code: I10 - Hypertension Status: Acute (4) Tachycardia ICD Code: R00.0 - Tachycardia, unspecified Status: Acute Procedures no invasive procedures. Brief History - From Admission 22-year-old male with history of cerebral palsy, intellectual disability, hypertension, tachycardia, spastic quadriplegic, asthma, presents with a two day history of cough. The patient's foster mother is at bedside and assists with the history.S She has been his caregiver for 14 years now and knows the patient very well. She explains on 08/01 while at a dental evaluation in [place], the patient bit down on the mirror probe and broke the glass. That day he was sent to the ER, scans are performed, and there was no evidence of any foreign body. The patient was doing well until he started to develop a nonproductive cough two days ago. Denies any fevers but the patient was cool and clammy this morning. Denies noticing any complaints of pain, nausea/vomiting , or diarrhea. He has not been drinking as much fluids over the past few days. The patient's brother was sick with the flu one week ago. Today the patient went for his scheduled follow-up visit for the glass incident, saw a new PCP who noted his heart rate to be high and sent him to the ER for further evaluation. The foster mother reports that the patient has tachycardia at baseline, usually in the low 100s, however his heart rate does increase to the 150s at times when he is at a facility and around new people. There are no other concerns reported at this time. He takes only liquids by mouth with a straw, otherwise has 5 cans of Jevity per day with 30ml water flush pre and post meals. CBC/BMP: 08/16/17 0500 08/16/17 0500 Significant Findings Laboratory Tests Test 08/15/17 14:15 08/15/17 16:52 08/15/17 17:30 08/16/17 05:00 Creatinine 0.53 MG/DL (0.60-1.30) 0.50 MG/DL (0.60-1.30) Lactic Acid Level 4.1 mmol/L (0.4-2.0) Urine Ketones 10 mg/dL (NEG) Urine WBC Clumps RARE (NONE) Lymphocytes (%) (Auto) 46.2 % (9.0-44.0) Monocytes (%) (Auto) 9.7 % (0.0-8.0) Lymphocytes # (Auto) 5.0 TH/MM3 (1.0-4.8) Monocytes # (Auto) 1.1 TH/MM3 (0-0.9) Blood Urea Nitrogen 5 MG/DL (7-18) Random Glucose 72 MG/DL (74-106) Chloride Level 111 MEQ/L (98-107) Carbon Dioxide Level 20.3 MEQ/L (21.0-32.0) Imaging Last Impressions Chest X-Ray 08/15/17 1325 Signed Impressions: Service Date/Time: , August 15, 2017 14:14 - CONCLUSION: No acute pulmonary infiltrates. No significant change compared to the prior exam Mack Ring MD Hospital Course Patient presented with tachycardia, tachypnea, however with normal white count. [place] acid 4.1, however improved to 2.0 with hydration. Chest x-ray on admission with no acute findings. Urinalysis did show white blood cell clumps, however urine culture with no growth in 48 hours. Patient improved with broad- spectrum antibiotics, and will be discharged home on Levaquin to complete treatment course for possible bronchitis, possible UTI.. Recommend follow-up with pulmonology. Pt Condition on Discharge: Good Discharge Disposition: Discharge to SNF Discharge Time: > 30 minutes Discharge Instructions DIET: Follow Instructions for: On Tube Feeding Activities you can perform: Regular-No Restrictions Follow up Referrals: Pulmonology - 1 Week New Medications: Levofloxacin (Levofloxacin) 750 Mg Tablet 750 MG PO DAILY for Infection, #4 TAB 0 Refills Continued Medications: Albuterol Neb (Albuterol Neb) 2.5 Mg/3 Ml Neb 2.5 MG NEB Q4HR NEB for Breathing Treatment, #60 NEBULE 0 Refills While awake Baclofen Inj (Lioresal Intrathecal Inj) 40 Mg/20 Ml Kit 399.7 MCG ITR CONTINUOUS Use Only with pump labeled for intrathecal administration. Lisinopril (Lisinopril) 2.5 Mg Tab 3.75 MG PO DAILY, #30 TAB 0 Refills Loratadine (Claritin) 10 Mg Cap 10 MG PO HS for Allergy Management, #30 CAP 5 Refills Montelukast (Singulair) 10 Mg Tab 10 MG PO HS, #30 TAB 4 Refills Nutritional Supplements (Jevity 1.5 Karson) 1 Liq Liq Omeprazole (Omeprazole) 20 Mg Tab 20 MG PO DAILY, #30 TAB 0 Refills Elias Jimenez MD Aug 17, 2017 12:21
[2017-08-17 12:32] VITALS: PULSE 61
== END 2017-08-17 15:35 | disposition home or self-care (01) ==
LOC: NEPC 12:55 → NEDA 16:53 → HCPC 17:57 → N04A 08-16 21:49
PROVIDERS: ADMIT Internal Medicine; ATTEND Internal Medicine
DX: R65.10 Systemic inflammatory response syndrome (SIRS) of non-infectious origin without acute organ dysfunction (principal); G80.9 Cerebral palsy, unspecified; I10 Essential (primary) hypertension; R00.0 Tachycardia, unspecified; J20.9 Acute bronchitis, unspecified; E87.2 Acidosis; E86.0 Dehydration; R13.10 Dysphagia, unspecified; J45.909 Unspecified asthma, uncomplicated; Z79.899 Other long term (current) drug therapy; F79 Unspecified intellectual disabilities
CPT/HCPCS: 71010; 80048; 81001; 83605; 85025; 85610; 85730; 87040; 87086; 87804; 94664; 96361; 96365; 96366; 96372; 99285; G0378; J0696; J1650; J3370; J7030; J7050